=== PATIENT | female | born 1970 ===

== ENCOUNTER 2024-08-22 09:27 | Emergency (ER) | payer BC, SELFPAY ==
--- NOTE | ~2024-08-22 | CT_ITS ---
EXAMINATION: CT HEAD WITHOUT CONTRAST CLINICAL INFORMATION: headache, dizziness COMPARISON: None available. TECHNIQUE: Contiguous axial imaging was performed from the skull base to vertex without intravenous administration of contrast. This CT examination was performed using dose optimization techniques as appropriate, variously including the following: *Automated exposure control *Adjustment of mA and/or kV according to patient size (this includes techniques or standardized protocols for targeted exams where dose is matched to indication/reason for exam; i.e. extremities or head) *Use of iterative reconstruction technique DLP: 671 mGy-cm FINDINGS: Bony calvarium is intact. Skull base is intact. No acute intracranial hemorrhage, mass effect, midline shift, hydrocephalus or herniation. Posterior cranial fossa contents demonstrated no acute intracranial hemorrhage or mass effect. Velazquez-white matter differentiation is normal. Sellar/suprasellar region demonstrated intrasellar CSF prominence. Craniocervical junction is intact. No air-fluid levels in the included paranasal sinuses. Tympanic cavities and mastoid air cells are aerated. CT/CT head/brain wo IV con IMPRESSION: No acute intracranial hemorrhage or acute brain abnormality by CT. Electronically signed by: Grupo Lang MD 08/22/2024 10:38 AM EST
[2024-08-22 10:02] VITALS: BP 148/72; PULSE 73; RESP 16; TEMP 36.7; O2SAT 98; BMI 27.4
--- NOTE | 2024-08-22 10:02 | ED.DIZZY ---
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 No other symptoms with it. Does report hx of 4 months on and off she feels her face doesn't work for 1 min or less this happened today. She reports she is under a lot of stress. No n/v/d no numbness or weakness, she states this has been something goes on and off in the past. Dizziness worse with movements, no CP/SOB MD elicited complaint: dizziness and lightheadedness Onset (ago): month(s) Timing: sudden onset Severity: moderate Description: room spinning Context: change in body position History of similar symptoms: Yes Exacerbating factors: movement/ambulation, change in body position and standing Relieving factors: remaining still Associated symptoms: nausea and other (for 4 months she feels her R face gets paralyzed for 1 min or less) Related Data Home Medications ?Medication ?Instructions ?Recorded ?Confirmed escitalopram oxalate 10 mg tablet 10 mg PO DAILY 08/22/24 08/22/24 Previous Rx's ?Medication ?Instructions ?Recorded meclizine 25 mg tablet 25 mg PO TID PRN dizziness #30 tabs 08/22/24 Allergies Allergy/AdvReac Type Severity Reaction Status Date / Time Penicillins Allergy Anaphylaxis Verified 08/22/24 10:07 Review of Systems Review of Systems: Constitutional : No Fever, No Chills, No Fatigue ENT/Mouth : No sore throat, No Rhinorrhea Eyes: No Eye Pain, No Swelling, No Redness Cardiovascular : No Chest Pain, No SOB, No Dyspnea on Exertion Respiratory : No Cough, No Sputum Gastrointestinal : No Nausea, No Vomiting, No Diarrhea, No abdominal Pain Genitourinary : No Dysuria, No Urinary Frequency, No Hematuria, Musculoskeletal : No joint pain, No Myalgias, No Joint Swelling Skin : No Skin Lesions, No rash Neuro : No Weakness, No Numbness, pos Dizziness, no Headache Psych : No Anxiety/Panic, No Depression All other systems reviewed and are negative [facility] Past Medical History Attestation statement: The following information was validated with the patient. Source: old records reviewed Medical History (Updated 08/22/24 @ 19:40 by Fern Solis DO) Partial anomalous pulmonary venous return (PAPVR) CHF (congestive heart failure) Sjogren's disease Lupus (systemic lupus erythematosus) Social History Social History (Updated 08/22/24 @ 10:10 by Fern Solis DO) Patient Tobacco Use Status: Never used Tobacco Do you have a plan to hurt others: No Plan Physical Exam Vital Signs: Vital Signs: Last Vital Signs Temp 98.2 F 08/22/24 19:36 Pulse 70 08/22/24 19:36 Resp 16 08/22/24 19:36 BP 139/73 08/22/24 19:36 Pulse Ox 98 08/22/24 19:36 O2 Del Method Room Air 08/22/24 19:36 BMI result Body Mass Index 27.4 Appearance: Alert. Oriented X3. No acute distress. Eyes: Pupils equal, round and reactive to light. ENT: Pharynx normal. Neck: Normal inspection. Neck supple. CVS: Normal heart rate and rhythm. Pulses normal. Respiratory: No respiratory distress. Breath sounds normal. Abdomen: Soft and nontender. Skin: Skin warm and dry. Normal skin color. Normal skin turgor. Extremities: No lower extremity edema. No calf ttp Neuro: Oriented X 3. No motor deficit. No sensory deficit. CN2-12 intact no ataxia NIH Stroke Scale Internal: Initial- Upon Arrival Level of Consciousness: Alert Level of Consciousness Questions: Answers both questions correctly Level of Consciousness Commands: Performs both tasks correctly Best Gaze: Normal Visual: No visual loss Facial Palsy: Normal Motor Arm (Right): No drift Motor Arm (Left): No drift Motor Leg (Right): No drift Motor Leg (Left): No drift Limb Ataxia: Absent Sensory: Normal Best Language: No aphasia Dysarthia: Normal Extinction and Inattention: No abnormality Score: 0 Medical Decision Making Medical Decision Making MDM Narrative: 54 yo female 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 She was able to drive to work but then felt too dizzy to walk. She states she is under a lot of stress. States for 2 months R sided feelings on her face of paralysis where it freezes and goes away after a minute. She reports dizziness and nauseated this AM. She reports the room is spinning when she is dizzy, standing and moving head makes her dizziness worse. She felt a paralysis episode today as well. NIH o no deficits on exam will obtain basic labs, CT head for mass, EKG. Seems peripheral vertigo. Labs CT scan ordered Differential Diagnosis Differential Diagnoses: The differential diagnosis associated with the presentation includes anemia, dehydration peripheral vertigo doubt stroke no other symptoms has had these symptoms on and off for a while Admission/Observation Consideration of admission/observation: Escalation of care including admission/observation considered work up reassuring, steady gait, no ataxia Lab Data MDM Lab Attestation statement: I reviewed the patient's lab results. 08/22/24 10:46 08/22/24 10:46 Labs: Lab Results 08/22/24 Range/Units 10:46 WBC 5.9 (4.8-10.8) X10*3/uL RBC 4.63 (4.20-5.50) X10*6/uL Hgb 13.1 (12.0-16.0) g/dl Hct 39.2 (37.0-47.0) % MCV 84.7 (80.0-98.0) fL MCH 28.3 (27.0-33.0) pg MCHC 33.4 (31.0-35.0) g/dl RDW 12.2 (11.0-16.0) % Plt Count 272 (160-400) X10*3/uL MPV 10.7 (9.4-12.3) fL Immature Gran % (Auto) 0.2 (0.0-0.4) % Neut % (Auto) 65.0 (45-73) % Lymph % (Auto) 26.2 (20-40) % Sandoval % (Auto) 6.6 (2-11) % Eos % (Auto) 1.0 (0-4) % Baso % (Auto) 1.0 (0-2) % Lymph # (Auto) 1.6 (1.2-4.9) X10*3/uL Sandoval # (Auto) 0.4 (0.1-1.2) X10*3/uL Eos # (Auto) 0.1 (0.0-0.4) X10*3/uL Baso # (Auto) 0.1 (0.0-0.2) X10*3/uL Abs Immat Gran (auto) 0.01 (0.00-0.03) X10*3/uL Absolute Neuts (auto) 3.8 (2.0-8.3) x10*3/uL Absolute Nucleated RBC 0.000 (0.0-0.012) X10*3/uL Nucleated RBC % (auto) 0.0 (0.0-0.2) /100WBC ESR 21 H (0-20) MM/HR Sodium 142 (135-145) mmol/L Potassium 3.9 (3.3-5.1) mmol/L Chloride 109 H (96-108) mmol/L Carbon Dioxide 26 (22-29) mmol/L Anion Gap 11 L (12-20) BUN 13 (9-16) mg/dL Creatinine 0.72 (0.5-1.4) mg/dL Estim Creat Clear Calc 78.9 Estimated GFR > 60 Random Glucose 95 (60-115) mg/dL Calcium 9.5 (8.4-10.2) mg/dL Magnesium 1.8 (1.6-2.6) mg/dL Total Bilirubin 0.5 (0.0-1.0) mg/dL Direct Bilirubin 0.2 (0.0-0.5) mg/dL AST 25 (5-31) U/L ALT 15 (0-31) U/L Alkaline Phosphatase 60 (39-117) U/L Troponin I High Sens < 2.7 (<3.5-17.0) ng/L C-Reactive Protein 0.68 H (< or = 0.50) mg/dL Total Protein 7.7 (6.5-8.0) g/dL Albumin 4.2 (3.5-5.0) g/dL Lipase 17 (8-78) U/L TSH 0.71 (0.32-4.0) uIU/mL Independent Interpretation I performed an independent interpretation of an: EKG and CT Scan (normal ) Interpretation: Rate: 71 Rhythm: NSR Chestnut: normal Normal P waves. Normal AMARA. incomplete RBBB ST T wave : inverted t waves V1 and V2 qTC: 462 prior studies: no acute ischemia The study has been interpreted contemporaneously by me. .71 Radiology Impression Discussion of test interpretation with radiology: I have reviewed the radiologist's reading. Independent Historian Clinical information obtained from an independent historian. History obtained from or confirmed by: Friend External Record Review External record reviewed: Outpatient record Prescription Management I considered prescription management with: Other Discharge Plan Discharge Clinical Impression: Dizziness Patient Disposition: Home, Self-Care Instructions: Dizziness (ED) Additional Instructions: labs reassuring CT scan no acute findings EKG incomplete RBBB stay hydrated, return for any worsening symptoms or concerns follow up with your doctor for further work up Prescriptions: New meclizine 25 mg tablet 25 mg PO TID PRN (Reason: dizziness) Qty: 30 0RF No Action escitalopram oxalate 10 mg tablet 10 mg PO DAILY Stand Alone Forms: Work/School Release Print Language: [place]ican
--- NOTE | 2024-08-22 10:09 | ECG_ITS ---
Test Reason : DIZZINESS Blood Pressure : */* mmHG Vent. Rate : 71 BPM Atrial Rate : 71 BPM P-R Int : 118 ms QRS Dur : 98 ms QT Int : 426 ms P-R-T Axes : 17 15 15 degrees QTcB Int : 462 ms Normal sinus rhythm Incomplete right bundle branch block Borderline ECG No previous ECGs available Referred By: Fern Solis Electronically Signed By: Alex Rivera
[2024-08-22 10:52] LABS: MANUAL DIFF FLAG NO
[2024-08-22 10:54] LABS: Basophils Absolute Auto 0.1 X10*3/uL (0.0-0.2); Eosinophils Absolute Auto 0.1 X10*3/uL (0.0-0.4); Hematocrit 39.2 % (37.0-47.0); Hemoglobin 13.1 g/dl (12.0-16.0); Imm Gran Abs Auto 0.01 X10*3/uL (0.00-0.03); Imm Gran Pct Auto 0.2 % (0.0-0.4); Lymphocytes Absolute Auto 1.6 X10*3/uL (1.2-4.9); Lymphocytes Percent Auto 26.2 % (20-40); Mean Corpuscular HGB Conc 33.4 g/dl (31.0-35.0); Mean Corpuscular Hemoglobin 28.3 pg (27.0-33.0); Mean Corpuscular Volume 84.7 fL (80.0-98.0); Mean Platelet Volume 10.7 fL (9.4-12.3); Monocytes Absolute Auto 0.4 X10*3/uL (0.1-1.2); Monocytes Percent Auto 6.6 % (2-11); Neutrophils Absolute Auto 3.8 x10*3/uL (2.0-8.3); Platelet Count 272 X10*3/uL (160-400); Red Blood Count 4.63 X10*6/uL (4.20-5.50); Red Cell Distribution Width 12.2 % (11.0-16.0); White Blood Count 5.9 X10*3/uL (4.8-10.8)
[2024-08-22 11:15] LABS: Troponin-I High Sensitivity < 2.7 ng/L (<3.5-17.0)
[2024-08-22 11:17] LABS: Alanine Aminotransferase 15 U/L (0-31); Albumin Level 4.2 g/dL (3.5-5.0); Alkaline Phosphatase 60 U/L (39-117); Anion Gap 11 (12-20); Aspartate Amino Transferase 25 U/L (5-31); Bilirubin Direct 0.2 mg/dL (0.0-0.5); Bilirubin Total 0.5 mg/dL (0.0-1.0); Blood Urea Nitrogen 13 mg/dL (9-16); C Reactive Protein 0.68 mg/dL (< or = 0.50); Calcium 9.5 mg/dL (8.4-10.2); Carbon Dioxide 26 mmol/L (22-29); Chloride 109 mmol/L (96-108); Creatinine Clr Calc Pharmacy 78.9; Estimated Glomerular Filt Rate > 60; Glucose Random 95 mg/dL (60-115); Lipase 17 U/L (8-78); Magnesium 1.8 mg/dL (1.6-2.6); Potassium 3.9 mmol/L (3.3-5.1); Sodium 142 mmol/L (135-145); Total Protein 7.7 g/dL (6.5-8.0)
[2024-08-22 11:29] LABS: TSH reflex Free T4 0.71 uIU/mL (0.32-4.0)
[2024-08-22 11:32] LABS: Erythrocyte Sedimentation Rate 21 MM/HR (0-20)
[2024-08-22 16:19] VITALS: BP 141/71; PULSE 69; RESP 16; TEMP 36.4; O2SAT 99
[2024-08-22 19:36] VITALS: BP 139/73; PULSE 70; RESP 16; TEMP 36.8; O2SAT 98
--- NOTE | 2024-08-22 19:37 | PC.NURSE ---
pt offered tylenol and ibuprofen for headache but she declined. reports intermittent dizziness that is not associated with movement/standing and states that she has continued pins/needles sensation to her entire face that comes and goes without clear trigger or cause. she is well appearing, alert, oriented, skin warm and dry without distress noted. pt is conversing in full/complete sentences and has no outward s/s of neuro deficits noted in triage.
[2024-08-22 20:03] VITALS: BP 128/71; PULSE 70; RESP 16; TEMP 36.9; O2SAT 95
== END 2024-08-22 20:05 | disposition home or self-care (01) ==
PROVIDERS: Emergency Provider Emergency Medicine; PCP Physician Assistant Medical
DX: R42 Dizziness and giddiness (principal); I45.10 Unspecified right bundle-branch block; R29.700 NIHSS score 0; I50.9 Heart failure, unspecified; M32.9 Systemic lupus erythematosus, unspecified
CPT/HCPCS: 36415; 70450; 80048; 80076; 83690; 83735; 84443; 84484; 85025; 85652; 86140; 93005; 99283; 99284

== ENCOUNTER → 2024-08-22 10:09 | Outpatient (BNV) | payer OTHER, SELFPAY | PROVIDERS: PCP Physician Assistant Medical; Visit Provider Radiology Diagnostic Radiology | DX: R51.9 Headache, unspecified (principal); R42 Dizziness and giddiness | CPT/HCPCS: 70450 ==

== ENCOUNTER → 2024-08-22 10:09 | Outpatient (BNV) | payer BC, SELFPAY | PROVIDERS: Emergency Provider Emergency Medicine; PCP Physician Assistant Medical; Visit Provider Internal Medicine Cardiovascular Disease | DX: I45.10 Unspecified right bundle-branch block (principal) | CPT/HCPCS: 93010 ==